=== PATIENT | female | born 1950 | race Caucasian/White ===

== ENCOUNTER 2018-09-28 20:16 | Emergency (ER) | payer OTHER, BC ==
--- OUTSIDE RECORDS SUMMARY | 2018-09-28 20:17 | XMS REPORT | Clinical Summary ---
:1950 Author Organization [facility]ream[facility] Address [address] [place] [address] Care Team Providers Name Role Phone Cassia Primary Care Provider Allergies No Known Allergies Medications No known medications Active Problems Problem Noted Date NSTEMI (non-ST elevated myocardial infarction) 08/16/2016 Social History Tobacco Use Types Packs/Day Years Used Date Passive Smoke Exposure - Never Smoker Alcohol Use Drinks/Week oz/Week Comments No Sex Assigned at Date Recorded Not on file Job Start Date Occupation Industry Not on file Not on file Not on file Travel History Travel Start Travel End No recent travel history available. 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
--- OUTSIDE RECORDS SUMMARY | 2018-09-28 20:17 | XMS REPORT ---
:1950 [facility] Address [address] [place] [address] [place] [id number] Care Team Providers Name Role Phone JOSE R ANGELO Unavailable Unavailable Problems This patient has no known problems. Allergies, Adverse Reactions, Alerts This patient has no known allergies or adverse reactions. Medications This patient has no known medications. Results Test Description Test Time Test Comments Text Results Atomic Results Result Comments BLOOD CULTURE 2016-08-22 11:00:00 Test Item Value Reference Range Comments CULTURE (BEAKER) (test yqlv=3410) No growth in 5 days BLOOD [id number] 11:00:00 Test Item Value Reference Range Comments CULTURE (BEAKER) (test nbek=5467) No growth in 5 days BASIC METABOLIC [id number] 03:05:00 Test Item Value Reference Range Comments SODIUM (BEAKER) (test 139 meq/L 136-145 loft=168) POTASSIUM (BEAKER) (test 4.0 meq/L 3.5-5.1 qdiq=033) CHLORIDE (BEAKER) (test 103 meq/L 98-107 uzpn=759) CO2 (BEAKER) (test 29 meq/L 22-29 ewas=130) BLOOD UREA NITROGEN 9 mg/dL 7-21 (BEAKER) (test ljsx=746) CREATININE (BEAKER) (test 0.64 mg/dL 0.57-1.25 tizk=603) GLUCOSE RANDOM (BEAKER) 98 mg/dL 70-105 (test yuga=062) CALCIUM (BEAKER) (test 8.4 mg/dL 8.4-10.2 qpvg=554) EGFR (BEAKER) (test 93 mL/min/1.73 sq m ESTIMATED GFR IS NOT koxg=3144) ACCURATE CREATININE CLEARANCE IN PREDICTING GLOMERULAR FILTRATION RATE. ESTIMATED GFR IS NOT APPLICABLE FOR DIALYSIS PATIENTS. CBC (HEMOGRAM ONLY)2016-08-18 02:53:00 Test Item Value Reference Range Comments WHITE BLOOD CELL COUNT (BEAKER) (test kqmo=290) 9.2 K/ L 4.0-10.0 RED BLOOD CELL COUNT (BEAKER) (test ogwm=915) 4.04 M/ L 4.00-5.00 HEMOGLOBIN (BEAKER) (test skrd=023) 11.2 GM/DL 12.0-15.0 HEMATOCRIT (BEAKER) (test ftbl=756) 33.8 % 36.0-45.0 MEAN CORPUSCULAR VOLUME (BEAKER) (test dmox=120) 83.6 fL 82.0-99.0 MEAN CORPUSCULAR HEMOGLOBIN (BEAKER) (test 27.7 pg 27.0-33.0 kjcl=784) MEAN CORPUSCULAR HEMOGLOBIN CONC (BEAKER) (test 33.1 GM/DL 32.0-36.0 hcef=975) RED CELL DISTRIBUTION WIDTH (BEAKER) (test 15.2 % 10.3-14.2 veaf=649) PLATELET COUNT (BEAKER) (test islb=216) 179 K/CU MM 150-430 MEAN PLATELET VOLUME (BEAKER) (test ftrl=429) 7.2 fL 6.5-10.5 NUCLEATED RED BLOOD CELLS (BEAKER) (test 0 /100 WBC 0-0 oqlz=533) 0.00TROPONIN [id number] 14:10:00 Test Item Value Reference Range Comments TROPONIN I (BEAKER) (test kvoq=637) 0.21 ng/mL 0.00-0.03 Effective 01/04/2014: Reference Range ChangeNew: 0.00-0.03 Previous 0.00- 0.15Troponin I (TnI) levels must be interpreted in the context of the presenting symptoms and the clinical findings. Elevated TnI levels indicate myocardial damage, but are not specific for ischemic heart disease. Elevated TnI levels are seen in patients with other cardiac conditions (including myocarditis and congestive heartfailure), and slight TnI elevations occur in patients with other conditions, including sepsis, renalfailure, acidosis, acute neurological disease, and persistent tachyarrhythmia.LIPID [id number] 04:20 :00 Test Item Value Reference Range Comments TRIGLYCERIDES (BEAKER) (test ahtj=649) 71 mg/dL CHOLESTEROL (BEAKER) (test bafa=375) 159 mg/dL HDL CHOLESTEROL (BEAKER) (test oyuq=609) 32 mg/dL LDL CHOLESTEROL CALCULATED (BEAKER) (test 113 mg/dL elqn=570) Triglyceride Reference Range: Low Risk <150 Borderline 150- 199 High Risk 200-499 Very High Risk >=500Cholesterol Reference Range: Low Risk <200 Borderline 200-239 High Risk > 240HDL Cholesterol Reference Range: Low Risk >=60 High Risk <40LDL Cholesterol Reference Range: Optimal <100 Near Optimal 100-129 Borderline 130-159 High 160-189 Very High >=190BASI METABOLIC [id number] 04:20:00 Test Item Value Reference Range Comments SODIUM (BEAKER) (test 136 meq/L 136-145 dnde=727) POTASSIUM (BEAKER) (test 3.8 meq/L 3.5-5.1 jlfu=683) CHLORIDE (BEAKER) (test 105 meq/L 98-107 uxly=998) CO2 (BEAKER) (test 24 meq/L 22-29 izfw=900) BLOOD UREA NITROGEN 11 mg/dL 7-21 (BEAKER) (test rzqn=860) CREATININE (BEAKER) (test 0.73 mg/dL 0.57-1.25 ptoe=989) GLUCOSE RANDOM (BEAKER) 96 mg/dL 70-105 (test mtiz=524) CALCIUM (BEAKER) (test 8.0 mg/dL 8.4-10.2 rkki=235) EGFR (BEAKER) (test 80 mL/min/1.73 sq m ESTIMATED GFR IS NOT gulw=9986) ACCURATE CREATININE CLEARANCE IN PREDICTING GLOMERULAR FILTRATION RATE. ESTIMATED GFR IS NOT APPLICABLE FOR DIALYSIS PATIENTS. CBC (HEMOGRAM ONLY)2016-08-17 03:56:00 Test Item Value Reference Range Comments WHITE BLOOD CELL COUNT (BEAKER) (test mqkt=515) 10.2 K/ L 4.0-10.0 RED BLOOD CELL COUNT (BEAKER) (test ldyp=166) 4.01 M/ L 4.00-5.00 HEMOGLOBIN (BEAKER) (test ufka=686) 10.7 GM/DL 12.0-15.0 HEMATOCRIT (BEAKER) (test jrkm=147) 33.4 % 36.0-45.0 MEAN CORPUSCULAR VOLUME (BEAKER) (test rtlh=935) 83.4 fL 82.0-99.0 MEAN CORPUSCULAR HEMOGLOBIN (BEAKER) (test 26.7 pg 27.0-33.0 lniu=960) MEAN CORPUSCULAR HEMOGLOBIN CONC (BEAKER) (test 32.0 GM/DL 32.0-36.0 mlpc=763) RED CELL DISTRIBUTION WIDTH (BEAKER) (test 13.6 % 10.3-14.2 nqte=893) PLATELET COUNT (BEAKER) (test yole=481) 201 K/CU MM 150-430 MEAN PLATELET VOLUME (BEAKER) (test pxvf=714) 6.7 fL 6.5-10.5 NUCLEATED RED BLOOD CELLS (BEAKER) (test 0 /100 WBC 0-0 funp=502) [id number] 14:46:00 Test Item Value Reference Range Comments ACTIVATED CLOTTING TIME 307 sec TESTED AT [facility] [address] (BEAKER) (test aggn=420) [facility] [address]
[2018-09-28] MEDS ORDERED: HYDROCODONE/APAP 5/325 MG TAB ONE ×2 (20:40→22:24)
[2018-09-28] MEDS ORDERED: NA CHLORIDE 0.9% 1,000 ML ONE (21:36)
[2018-09-28] MEDS ORDERED: KETOROLAC 30 MG/ML INJ ONE (21:36)
--- NOTE | 2018-09-28 21:48 | ER ---
Nurse's Notes [facility] Name: Dori Johnson Age: 67 yrs Sex: Female : 1950 Arrival Date: 09/28/2018 Time: 20:22 Bed 16 Private MD: Saeed Plascencia V Diagnosis: Unspecified nondisplaced fracture of surgical neck of left humerus Presentation: 09/28 20:26 Presenting complaint: Patient states: Two hours ago she had a fall and landed on her ea left shoulder, reports severe pain and limited range of motion to left shoulder. Denies head injury or LOC. Transition of care: patient was not received from another setting of care. Onset of symptoms was September 28, 2018. Risk Assessment: Do you want to hurt yourself or someone else? Patient reports no desire to harm self or others. Initial Sepsis Screen: Does the patient meet any 2 criteria? No. Patient's initial sepsis screen is negative. Does the patient have a suspected source of infection? No. Patient's initial sepsis screen is negative. Care prior to arrival: None. 20:26 Method Of Arrival: Ambulatory ea 20:26 Acuity: LULA 4 ea Triage Assessment: 20:31 General: Appears uncomfortable, Behavior is appropriate for age. Pain: Complains of ea pain in posterior aspect of left shoulder. Musculoskeletal: Range of motion: limited in left shoulder. Historical: - Allergies: 20:30 No Known Allergies; ea - Home Meds: 20:30 statin [Active]; baby aspirin [Active]; ea - PMHx: 20:30 Hyperlipidemia; ea - Immunization history:: Adult Immunizations up to date. - Social history:: Smoking status: Patient/guardian denies using tobacco. - Ebola Screening: : No symptoms or risks identified at this time. Screenin:30 Abuse screen: Denies threats or abuse. Nutritional screening: No deficits noted. ea Tuberculosis screening: No symptoms or risk factors identified. Fall Risk None identified. Assessment: 20:40 General: Appears uncomfortable, Behavior is calm, cooperative. Pain: Complains of pain tr5 in right lateral posterior chest Pain does not radiate. Pain currently is 9 out of 10 on a pain scale. Quality of pain is described as aching, Pain began 1 hour ago. Is continuous. Neuro: Level of Consciousness is awake, alert, Oriented to person, place, time, Grinder Lap are equal bilaterally Moves all extremities. Gait is steady, Speech is normal, Facial symmetry appears normal. Cardiovascular: Heart tones present Bruits absent Capillary refill < 3 seconds Pulses are all present. Edema is absent. Respiratory: Airway is patent Trachea midline Respiratory effort is even, unlabored, Respiratory pattern is regular, symmetrical, Breath sounds are clear bilaterally. GI: No signs and/or symptoms were reported involving the gastrointestinal system. : No signs and/or symptoms were reported regarding the genitourinary system. EENT: No signs and/or symptoms were reported regarding the EENT system. Derm: No signs and/or symptoms reported regarding the dermatologic system. Musculoskeletal: Capillary refill < 3 seconds, Range of motion: intact in all extremities. 21:27 Reassessment: No changes from previously documented assessment. Patient and/or family tr5 updated on plan of care and expected duration. Pain level reassessed. Patient is alert, oriented x 3, equal unlabored respirations, skin warm/dry/pink. 22:26 Reassessment: Patient and/or family updated on plan of care and expected duration. Pain tr5 level reassessed. Patient is alert, oriented x 3, equal unlabored respirations, skin warm/dry/pink. Vital Signs: 20:28 BP 138 / 108; Pulse 98; Resp 19; Temp 98.2; Pulse Ox 98% on R/A; Weight 90.72 kg; ea Height 5 ft. 6 in. (167.64 cm); Pain 9/10; 21:27 BP 137 / 91; Pulse 90; Resp 16; Pulse Ox 99% on R/A; tr5 22:26 BP 138 / 80; Pulse 92; Resp 14; Pulse Ox 100% on R/A; tr5 20:28 Body Mass Index 32.28 (90.72 kg, 167.64 cm) ea ED Course: 20:22 Patient arrived in ED. am2 20:22 Tim Casiano NP is PHCP. pm1 20:22 Paras Pride MD is Attending Physician. pm1 20:23 Saeed Plascencia MD is Private Physician. am2 20:28 Triage completed. ea 20:30 Patient has correct armband on for positive identification. Bed in low position. Call ea light in reach. 20:31 Arm band placed on right wrist. Patient placed in an exam room, on a stretcher, on ea pulse oximetry. 20:34 Sawyer Chau, RN is Primary Nurse. tr5 20:40 Door closed. Noise minimized. tr5 21:00 Shoulder Left (2 View) XRAY In Process Unspecified. EDMS 21:45 Emmanuel Patricia MD is Referral Physician. pm1 22:27 Assist provider with bone marrow aspiration. Patient did not have IV access during this tr5 emergency room visit. Administered Medications: 20:38 Drug: Wray 5 mg-325 mg 1 tabs {Note: RAAS:0.} Route: PO; tr5 21:08 Follow up: Response: No adverse reaction; Pain is decreased; RASS: Alert and Calm (0) tr5 22:25 Drug: Wray 5 mg-325 mg 1 tabs {Note: RAAS:0.} Route: PO; tr5 22:25 Follow up: Response: Medication administered at discharge. tr5 22:25 Drug: Zofran 4 mg Route: PO; tr5 22:26 Follow up: Response: Medication administered at discharge. tr5 Outcome: 21:48 Discharge ordered by MD. pm1 22:27 Discharged to home ambulatory. tr5 22:27 Condition: stable 22:27 Discharge instructions given to patient, Instructed on discharge instructions, follow up and referral plans. medication usage, Demonstrated understanding of instructions, follow-up care, medications. 22:30 Patient left the ED. tr5 Signatures: Dispatcher [employer] EDNV Tim Casiano NP CURED MEAT PACKING SUPERVISOR pm1 Gabriela Arciniega am2 Peyton Engel RN RN ea Rodriguez, Tommie, MER RN tr5 Corrections: (The following items were deleted from the chart) 20:28 20:26 Presenting complaint: Patient states: Two hours ago she had a fall and landed on ea her left shoulder, reports severe pain and limited range of motion to left shoulder ea
--- NOTE | 2018-09-28 21:49 | EDPHYS ---
Physician Documentation [facility] Name: Dori Johnson Age: 67 yrs Sex: Female : 1950 Arrival Date: 09/28/2018 Time: 20:22 Bed 16 Private MD: Saeed Plascencia V ED Physician Paras Pride HPI: 09/28 20:33 This 67 yrs old Female presents to ER via Ambulatory with complaints of pm1 Shoulder Injury, Fall Injury. 20:33 The patient or guardian complains of pain. left shoulder. Context: The problem was pm1 sustained outdoors, resulted from a fall, while walking, The patient reports no decreased range of motion. The patient reports no obvious deformity. Onset: The symptoms/episode began/occurred today. Modifying factors: the symptoms are alleviated by remaining still, The symptoms are aggravated by movement. Associated signs and symptoms: The patient has no apparent associated signs or symptoms, Pertinent negatives: abdominal pain, chest pain, neck pain, Numbness in left arm tingling, headache, head injury. Severity of symptoms: in the emergency department the symptoms are unchanged. Treatment prior to arrival includes: no previous treatment. The patient has not experienced similar symptoms in the past. The patient has not recently seen a physician. 20:33 Patient tripped while walking and fell on left shoulder. pm1 Historical: - Allergies: 20:30 No Known Allergies; ea - Home Meds: 20:30 statin [Active]; baby aspirin [Active]; ea - PMHx: 20:30 Hyperlipidemia; ea - Immunization history:: Adult Immunizations up to date. - Social history:: Smoking status: Patient/guardian denies using tobacco. - Ebola Screening: : No symptoms or risks identified at this time. ROS: 20:33 Constitutional: Negative for fever, chills, and weight loss, Eyes: Negative for injury, pm1 pain, redness, and discharge, ENT: Negative for injury, pain, and discharge, Neck: Negative for injury, pain, and swelling, Cardiovascular: Negative for chest pain, palpitations, and edema, Respiratory: Negative for shortness of breath, cough, wheezing, and pleuritic chest pain, Abdomen/GI: Negative for abdominal pain, nausea, vomiting, diarrhea, and constipation, Back: Negative for injury and pain. 20:33 Skin: Negative for injury, rash, and discoloration, Neuro: Negative for headache, weakness, numbness, tingling, and seizure. 20:33 MS/extremity: Positive for pain, of the left shoulder, Negative for deformity, paresthesias, tingling. Exam: 20:33 Constitutional: This is a well developed, well nourished patient who is awake, alert, pm1 and in no acute distress. Head/Face: Normocephalic, atraumatic. Neck: Trachea midline, no thyromegaly or masses palpated, and no cervical lymphadenopathy. Supple, full range of motion without nuchal rigidity, or vertebral point tenderness. No Meningismus. Chest/axilla: Normal chest wall appearance and motion. Nontender with no deformity. No lesions are appreciated. Cardiovascular: Regular rate and rhythm with a normal S1 and S2. No gallops, murmurs, or rubs. Normal PMI, no JVD. No pulse deficits. Respiratory: Lungs have equal breath sounds bilaterally, clear to auscultation and percussion. No rales, rhonchi or wheezes noted. No increased work of breathing, no retractions or nasal flaring. Abdomen/GI: Soft, non-tender, with normal bowel sounds. No distension or tympany. No guarding or rebound. No evidence of tenderness throughout. Back: No spinal tenderness. No costovertebral tenderness. Full range of motion. Skin: Warm, dry with normal turgor. Normal color with no rashes, no lesions, and no evidence of cellulitis. 20:33 Musculoskeletal/extremity: Extremities: grossly normal except: noted in the left shoulder: tenderness, the left arm Sensation intact. Vital Signs: 20:28 BP 138 / 108; Pulse 98; Resp 19; Temp 98.2; Pulse Ox 98% on R/A; Weight 90.72 kg; ea Height 5 ft. 6 in. (167.64 cm); Pain 9/10; 21:27 BP 137 / 91; Pulse 90; Resp 16; Pulse Ox 99% on R/A; tr5 22:26 BP 138 / 80; Pulse 92; Resp 14; Pulse Ox 100% on R/A; tr5 20:28 Body Mass Index 32.28 (90.72 kg, 167.64 cm) ea MDM: 20:22 Patient medically screened. pm1 20:25 Patient medically screened. [facility] 21:44 Data reviewed: vital signs. Data interpreted: Pulse oximetry: on room air is 99 %. pm1 Interpretation: normal. Counseling: I had a detailed discussion with the patient and/or guardian regarding: the historical points, exam findings, and any diagnostic results supporting the discharge/admit diagnosis, radiology results, the need for outpatient follow up, to return to the emergency department if symptoms worsen or persist or if there are any questions or concerns that arise at home. 09/28 20:30 Order name: Shoulder Left (2 View) XRAY pm1 09/28 20:30 Order name: Sling; Complete Time: 21:47 pm1 Administered Medications: 20:38 Drug: Wenonah 5 mg-325 mg 1 tabs {Note: RAAS:0.} Route: PO; tr5 21:08 Follow up: Response: No adverse reaction; Pain is decreased; RASS: Alert and Calm (0) tr5 22:25 Drug: Wenonah 5 mg-325 mg 1 tabs {Note: RAAS:0.} Route: PO; tr5 22:25 Follow up: Response: Medication administered at discharge. tr5 22:25 Drug: Zofran 4 mg Route: PO; tr5 22:26 Follow up: Response: Medication administered at discharge. tr5 Disposition: 09/29 06:47 Co-signature as Attending Physician, Paras Pride MD I agree with the assessment and [facility] plan of care. Disposition: 09/28/18 21:48 Discharged to Home. Impression: Unspecified nondisplaced fracture of surgical neck of left humerus. - Condition is Stable. - Discharge Instructions: Humerus Fracture Treated With Immobilization, How to Use a Shoulder Immobilizer. - Prescriptions for Tramadol 50 mg Oral Tablet - take 1 tablet by ORAL route every 8 hours as needed; 20 tablet. - Medication Reconciliation Form, Thank You Letter, Antibiotic Education, Prescription Opioid Use form. - Follow up: Emergency Department; When: As needed; Reason: Worsening of condition. Follow up: Emmanuel Patricia MD; When: 2 - 3 days; Reason: Recheck today's complaints, Continuance of care, Re-evaluation by your physician. - Problem is new. - Symptoms have improved. Signatures: Dispatcher [employer] Paras Goel MD MD cha Marinas, Patrick, SOFT METALS HAND ENGRAVER SOFT METALS HAND ENGRAVER pm1 Peyton Engel RN Sawyer Muniz ea, RN RN tr5 Corrections: (The following items were deleted from the chart) 09/28 21:49 21:48 09/28/2018 21:48 Discharged to Home. Impression: Unspecified displaced fracture pm1 of surgical neck of left humerus. Condition is Stable. Forms are Medication Reconciliation Form, Thank You Letter, Antibiotic Education, Prescription Opioid Use. Follow up: Emergency Department; When: As needed; Reason: Worsening of condition. Follow up: Emmanuel Patricia; When: 2 - 3 days; Reason: Recheck today's complaints, Continuance of care, Re-evaluation by your physician. Problem is new. Symptoms have improved. pm1 22:30 21:49 09/28/2018 21:48 Discharged to Home. Impression: Unspecified nondisplaced tr5 fracture of surgical neck of left humerus. Condition is Stable. Forms are Medication Reconciliation Form, Thank You Letter, Antibiotic Education, Prescription Opioid Use. Follow up: Emergency Department; When: As needed; Reason: Worsening of condition. Follow up: Emmanuel Patricia; When: 2 - 3 days; Reason: Recheck today's complaints, Continuance of care, Re-evaluation by your physician. Problem is new. Symptoms have improved. pm1
[2018-09-28] MEDS ORDERED: ONDANSETRON 4 MG (ODT) TAB ONE (22:25)
--- NOTE | 2018-09-29 07:54 | RAD REPORT ---
EXAM DESCRIPTION: RAD - Shoulder Left 2 View - 09/28/2018 8:58 pm CLINICAL HISTORY: Left shoulder pain status post fall FINDINGS: No fracture or dislocation is seen. Osteoporosis If the patient continues have symptoms to suggest an occult fracture or rotator cuff tear MRI would b e recommended
== END 2018-09-28 22:30 | disposition home or self-care (01) ==
LOC: ER 20:16
DX: S42.215A Unspecified nondisplaced fracture of surgical neck of left humerus, initial encounter for closed fracture (principal); W01.0XXA Fall on same level from slipping, tripping and stumbling without subsequent striking against object, initial encounter; Y93.01 Activity, walking, marching and hiking; E78.5 Hyperlipidemia, unspecified
CPT/HCPCS: 73030; 99284; J7030